=== PATIENT | female | born 1950 | race Two or more races ===

== ENCOUNTER 2019-01-27 11:57 | Emergency (ER) | payer MEDICARE ==
[~2019-01-27] VITALS: Ht 162.6 cm; Wt 83.7 kg
[2019-01-27 12:56] VITALS: BP 118/67
== END 2019-01-27 14:32 | disposition home or self-care (01) ==
LOC: ED 14:27
DX: M79.662 Pain in left lower leg (principal); M25.562 Pain in left knee
CPT/HCPCS: 99284